=== PATIENT | male | born 1985 | race Caucasian/White ===

== ENCOUNTER 2016-03-09 19:23 | Emergency (ER) | payer BC, OTHER ==
[2016-03-09 20:19] VITALS: BP 146/76
[2016-03-09] MEDS ORDERED: Acetaminophen TAB* 325 MG PO ONE (20:21)
--- NOTE | 2016-03-09 21:15 | UC ---
HPI Febrile Illness - HPI Summary HPI Summary: pt c/o fever, chills X 1 day. - History of Current Complaint Chief Complaint: UCGeneralIllness Time Seen by Provider: 03/09/16 20:25 Hx Obtained From: Patient Onset/Duration: Started Hours Ago Timing: Constant Initial Severity: Mild Current Severity: Mild Aggravating Factors: Nothing Alleviating Factors: Other: - has not taken any OTC medication Associated Signs and Symptoms: Chills - Allergy/Home Medications Allergies/Adverse Reactions: Allergies Allergy/AdvReac Type Severity Reaction Status Date / Time seasonal, cats, dogs Allergy Runny Nose Uncoded 03/09/16 20:19 PMH/Surg Hx/FS Hx/Imm Hx Previously Healthy: Yes Endocrine/Hematology History: Denies: Hx Thyroid Disease Cardiovascular History: Denies: Hx Pacemaker/ICD Respiratory History: Denies: Hx Lung Cancer Sensory History: Denies: Hx Hearing Aid Psychiatric History: Denies: Hx Panic Disorder - Surgical History Surgery Procedure, Year, and Place: HERNIA A CHILD; right knee 2014 Infectious Disease History: No Infectious Disease History: Denies: Traveled Outside the [place] in Last 30 Days - Family History Known Family History: Positive: Cardiac Disease - Social History Lives: With Family Alcohol Use: Occasionally Substance Use Type: Reports: None Smoking Status (MU): Never Smoked Tobacco Review of Systems Constitutional: Fever, Chills, Fatigue Skin: Negative Eyes: Negative ENT: Ear Ache Respiratory: Cough - with deep breaths Cardiovascular: Negative Gastrointestinal: Negative Genitourinary: Negative Motor: Negative Neurovascular: Negative Musculoskeletal: Negative Neurological: Headache Psychological: Negative All Other Systems Reviewed And Are Negative: Yes Physical Exam Triage Information Reviewed: Yes Appearance: Ill-Appearing - mild Vital Signs: Initial Vital Signs Temp 102.2 F 03/09/16 20:14 Pulse 106 03/09/16 20:14 Resp 18 03/09/16 20:14 BP 146/76 03/09/16 20:14 Pulse Ox 100 03/09/16 20:14 Vital Signs Reviewed: Yes ENT Exam: Normal Neck exam: Normal Respiratory Exam: Normal Cardiovascular Exam: Normal Musculoskeletal Exam: Normal Neurological Exam: Normal Psychological Exam: Normal Skin Exam: Normal Course/Dx - Febrile Illness Differential Diagnoses: Other: - influenza, Bronchitis - Diagnoses Clinic Provider Diagnoses: bronchitis Discharge - Discharge Plan Condition: Stable Disposition: HOME Prescriptions: Azithromycin TAB* [Zithromax TAB (Z-BRADLEY) 250 mg #6 tabs] 2 tab PO .TODAY, THEN 1 DAILY #1 bradley Patient Education Materials: Acute Bronchitis (ED) Referrals: [facility] PHYSICIAN REFERRAL [Outside] No Primary Care Phys,NOPCP [Primary Care Provider] -
== END 2016-03-09 21:10 | disposition home or self-care (01) ==
LOC: UCCORT 19:23
DX: J40 Bronchitis, not specified as acute or chronic (principal)
CPT/HCPCS: 87502; 99212; A9270-GY; G0463

== ENCOUNTER 2017-02-21 14:52 | Emergency (ER) | payer BC ==
[2017-02-21 15:50] VITALS: BP 179/80
--- NOTE | 2017-02-21 15:55 | UC ---
Throat Pain/Nasal Papo HPI - HPI Summary HPI Summary: Pt c/o nasal congestion, sinus pressure and pain X 7 days. - History of Current Complaint Chief Complaint: UCRespiratory Stated Complaint: PAPO. Time Seen by Provider: 02/21/17 15:44 Hx Obtained From: Patient Onset/Duration: Gradual Onset, Lasting Days, Still Present, Worse Since - onset Severity: Moderate Associated Signs & Symptoms: Positive: Sinus Discomfort - Epiglottits Risk Factors Epiglottis Risk Factors: Negative - Allergies/Home Medications Allergies/Adverse Reactions: Allergies Allergy/AdvReac Type Severity Reaction Status Date / Time seasonal, cats, dogs Allergy Runny Nose Uncoded 02/21/17 15:45 PMH/Surg Hx/FS Hx/Imm Hx Previously Healthy: Yes - Surgical History Surgical History: Yes Surgery Procedure, Year, and Place: HERNIA A CHILD; right knee 2013 - Family History Known Family History: Positive: Cardiac Disease - Social History Occupation: Employed Full-time Alcohol Use: Occasionally Substance Use Type: None Smoking Status (MU): Never Smoked Tobacco Have You Smoked in the Last Year: No - Immunization History Most Recent Influenza Vaccination: none Review of Systems Constitutional: Fatigue Skin: Negative Eyes: Negative ENT: Sinus Congestion, Sinus Pain/Tenderness Respiratory: Cough Cardiovascular: Negative Gastrointestinal: Negative Genitourinary: Negative Motor: Negative Neurovascular: Negative Musculoskeletal: Negative Neurological: Negative Psychological: Negative Is Patient Immunocompromised?: No All Other Systems Reviewed And Are Negative: Yes Physical Exam Triage Information Reviewed: Yes Appearance: Well-Appearing Vital Signs: Initial Vital Signs Temp 98.2 F 02/21/17 15:46 Pulse 110 02/21/17 15:46 Resp 16 02/21/17 15:46 BP 179/80 02/21/17 15:46 Pulse Ox 100 02/21/17 15:46 Vital Signs Reviewed: Yes Eye Exam: Normal ENT Exam: Other ENT: Positive: Nasal congestion, Sinus tenderness Dental Exam: Normal Neck exam: Normal Respiratory Exam: Normal Cardiovascular: Positive: Tachycardia, Murmur:Sys:Grade _?_/ Abdominal Exam: Normal Musculoskeletal Exam: Normal Neurological Exam: Normal Psychological Exam: Normal Psychological: Positive: Other: - Pt statd that he does not like to go to the doctors. That it makes him nervous. Skin Exam: Normal Throat Pain/Nasal Course/Dx - Differential Dx/Diagnosis Differential Diagnosis/HQI/PQRI: Sinusitis, URI Provider Diagnoses: sinusitis Discharge - Discharge Plan Condition: Stable Disposition: HOME Prescriptions: Amoxicillin PO (*) [Amoxicillin 875 MG (*)] 875 mg PO Q12H #20 tab Patient Education Materials: Sinusitis (ED) Referrals: No Primary Care Phys,NOPCP [Primary Care Provider] - If Needed
== END 2017-02-21 16:01 | disposition home or self-care (01) ==
LOC: UCCORT 14:52
DX: J32.9 Chronic sinusitis, unspecified (principal)
CPT/HCPCS: 99212; G0463

== ENCOUNTER 2017-04-05 19:34 | Emergency (ER) | payer BC ==
[2017-04-05 20:08] VITALS: BP 104/56
--- NOTE | 2017-04-05 20:29 | ED ---
Respiratory - HPI Summary HPI Summary: 32 yr old male with the complaint of cough, fever, chills. Cough has had some rust color blood tinge to it the past day. he is concerned he could have pneumonia. Denies chest pain. No other complaints. - History of Current Complaint Chief Complaint: UCRespiratory Stated Complaint: PRODUCTIVE COUGH Time Seen by Provider: 04/05/17 20:14 Pain Intensity: 0 - Allergy/Home Medications Allergies/Adverse Reactions: Allergies Allergy/AdvReac Type Severity Reaction Status Date / Time seasonal, cats, dogs Allergy Runny Nose Uncoded 04/05/17 20:08 Home Medications: Home Medications Dm/Pseudoephed/Acetaminophen [Day-Time Cold-Flu Softgel] 1 each PO DAILY [History Confirmed 04/05/17] Phenylephrine/Dm/Acetaminop/GG [Tylenol Cold-Flu Severe Caplet] 1 each PO DAILY 04/05/17 [History Confirmed 04/05/17] PMH/Surg Hx/FS Hx/Imm Hx Endocrine/Hematology History: Denies: Hx Thyroid Disease Cardiovascular History: Denies: Hx Pacemaker/ICD Respiratory History: Denies: Hx Lung Cancer Psychiatric History: Denies: Hx Panic Disorder - Surgical History Surgery Procedure, Year, and Place: HERNIA A CHILD; right knee 2014 Infectious Disease History: No Infectious Disease History: Denies: Traveled Outside the [place] in Last 30 Days - Family History Known Family History: Positive: Cardiac Disease - Social History Alcohol Use: Occasionally Substance Use Type: Reports: None Smoking Status (MU): Never Smoked Tobacco Have You Smoked in the Last Year: No Review of Systems Positive: Fever, Chills Positive: Cough All Other Systems Reviewed And Are Negative: Yes Physical Exam Triage Information Reviewed: Yes Vital Signs On Initial Exam: Initial Vitals Temp Pulse Resp BP Pulse Ox 97.9 F 80 18 104/56 99 04/05/17 20:04 04/05/17 20:04 04/05/17 20:04 04/05/17 20:04 04/05/17 20:04 Vital Signs Reviewed: Yes Appearance: Positive: Well-Appearing, No Pain Distress Skin: Positive: Warm, Skin Color Reflects Adequate Perfusion Head/Face: Positive: Normal Head/Face Inspection Eyes: Positive: EOMI ENT: Positive: Normal ENT inspection Neck: Positive: Supple, Nontender Respiratory/Lung Sounds: Positive: Clear to Auscultation, Breath Sounds Present Cardiovascular: Positive: RRR. Negative: Murmur Abdomen Description: Positive: Nontender Musculoskeletal: Positive: Strength/ROM Intact Neurological: Positive: Sensory/Motor Intact, Alert, Oriented to Person Place, Time, CN Intact II-III Psychiatric: Positive: Normal AVPU Assessment: Alert - Gloria Coma Scale Best Eye Response: 4 - Spontaneous Best Motor Response: 6 - Obeys Commands Best Verbal Response: 5 - Oriented Coma Scale Total: 15 Diagnostics - Vital Signs Vital Signs Temp Pulse Resp BP Pulse Ox 04/05/17 20:04 97.9 F 80 18 104/56 99 - Laboratory Lab Statement: Any lab studies that have been ordered have been reviewed, and results considered in the medical decision making process. - Radiology chest Xray Interpretation: No Acute Changes Radiology Interpretation Completed By: Radiologist Disposition - Course Course Of Treatment: 32 yr old with productive cough. Not ill appearing. Chest xray:neg dc home - Diagnoses Provider Diagnoses: Upper respiratory infection Discharge - Discharge Plan Condition: Good Disposition: HOME Patient Education Materials: Upper Respiratory Infection (ED) Forms: *Work Release Referrals: No Primary Care Phys,NOPCP [Primary Care Provider] - [facility] [place] PHYS[facility]IAN REFERRAL [Outside] - 2 Days
--- NOTE | 2017-04-05 20:38 | RAD ---
HISTORY: Cough COMPARISONS: None VIEWS: 4: Frontal dual-energy and lateral views of the chest. FINDINGS: CARDIOMEDIASTINAL SILHOUETTE: The cardiomediastinal silhouette is normal. DEBI: The debi are normal. PLEURA: The costophrenic angles are sharp. No pleural abnormalities are noted. LUNG PARENCHYMA: The lungs are clear. ABDOMEN: The upper abdomen is clear. There is no subphrenic gas. BONES AND SOFT TISSUES: Mild degenerative changes are noted. OTHER: None. IMPRESSION: NO ACTIVE CARDIOPULMONARY DISEASE.
== END 2017-04-05 20:48 | disposition home or self-care (01) ==
LOC: UCCORT 19:34
DX: J06.9 Acute upper respiratory infection, unspecified (principal)
CPT/HCPCS: 71046; 99212; G0463

== ENCOUNTER 2017-08-19 07:03 | Emergency (ER) | payer BC, OTHER ==
[2017-08-19 07:19] VITALS: BP 155/81
--- NOTE | 2017-08-19 07:28 | UC ---
Abdominal Pain Male HPI - HPI Summary HPI Summary: 32 year old male with diarrhea. Diarrhea since Monday night. Taking immodium prn w/ some relief when he takes it. Able to keep fluids/food down. Woke up 0430 this AM w/ LEFT leg cramping and diarrhea again. No fever. no blood in stool. no recent traveling. no camping. no new foods. no chills. ? fever 4 days ago. no longer. some nausea. no vomiting. not eating much or drinking much. [ End ] - History of Current Complaint Chief Complaint: UCGeneralIllness Stated Complaint: DEHYDRATED DIARRHEA LEFT LEG COMP Time Seen by Provider: 08/19/17 07:19 Hx Obtained From: Patient Onset/Duration: Gradual Onset Timing: Intermittent Episodes Lasting: Severity Initially: Moderate Severity Currently: Moderate Pain Intensity: 0 Character: Cramping - Allergies/Home Medications Allergies/Adverse Reactions: Allergies Allergy/AdvReac Type Severity Reaction Status Date / Time seasonal, cats, dogs Allergy Runny Nose Uncoded 08/19/17 07:13 PMH/Surg Hx/FS Hx/Imm Hx Previously Healthy: Yes - Surgical History Surgical History: Yes Surgery Procedure, Year, and Place: HERNIA A CHILD; right knee 2013 - Family History Known Family History: Positive: Cardiac Disease - Social History Occupation: Employed Full-time Alcohol Use: Occasionally Substance Use Type: None Smoking Status (MU): Never Smoked Tobacco Have You Smoked in the Last Year: No - Immunization History Most Recent Influenza Vaccination: none Review of Systems Constitutional: Fatigue Gastrointestinal: Diarrhea Musculoskeletal: Myalgia Is Patient Immunocompromised?: No All Other Systems Reviewed And Are Negative: Yes Physical Exam Triage Information Reviewed: Yes Appearance: Well-Appearing, No Pain Distress, Well-Nourished Vital Signs: Initial Vital Signs Temp 96.5 F 08/19/17 07:13 Pulse 75 08/19/17 07:13 Resp 16 08/19/17 07:13 BP 155/81 08/19/17 07:13 Pulse Ox 98 08/19/17 07:13 Vital Signs Reviewed: Yes Eye Exam: Normal ENT Exam: Normal Dental Exam: Normal Neck exam: Normal Neck: Positive: 1 Respiratory Exam: Normal Cardiovascular Exam: Normal Abdominal Exam: Normal Musculoskeletal Exam: Normal Neurological Exam: Normal Psychological Exam: Normal Skin Exam: Normal Abd Pain Male Course/Dx - Course Course Of Treatment: viral gastroenteritis. no infectious causes. due to duration send home with stool kit. declined work note - Differential Dx/Clinical Impression Provider Diagnoses: diarrhea. leg cramping / spasms. elevate BP without dx of HTN Discharge - Sign-Out/Discharge Documenting (check all that apply): Discharge/Admit/Transfer - Discharge Plan Condition: Good Disposition: HOME Prescriptions: Ondansetron [Zofran Odt] 4 mg PO BID PRN #14 tab.rapdis PRN Reason: Nausea Patient Education Materials: Gastroenteritis (ED) Referrals: No Primary Care Phys,NOPCP [Primary Care Provider] - 1 Week Additional Instructions: You were given a stool kit to further evaluate your diarrhea. Please return the kit as directed - Billing Disposition and Condition Condition: GOOD Disposition: Home
== END 2017-08-19 07:50 | disposition home or self-care (01) ==
LOC: UCCORT 07:03
DX: R19.7 Diarrhea, unspecified (principal); R25.2 Cramp and spasm; R03.0 Elevated blood-pressure reading, without diagnosis of hypertension
CPT/HCPCS: 99212; G0463

== ENCOUNTER 2018-03-23 11:09 | Emergency (ER) | payer BC ==
[2018-03-23 12:18] VITALS: BP 144/77
--- NOTE | 2018-03-23 12:54 | UC ---
Respiratory Complaint HPI - HPI Summary HPI Summary: 33-year-old male here with a chief complaint of upper respiratory tract infection symptoms for 2 weeks.He had a runny nose sore throat is causing moved into his chest. Now he feels chest congestion he's having wheezing and shortness of breath. No recent fevers. He has been taking hot steamy showers which does help open things up. He also has been having coughing fits. - History of Current Complaint Chief Complaint: UCGeneralIllness Stated Complaint: COUGH,FEVER Time Seen by Provider: 03/23/18 12:33 Pain Intensity: 0 - Allergies/Home Medications Allergies/Adverse Reactions: Allergies Allergy/AdvReac Type Severity Reaction Status Date / Time seasonal, cats, dogs Allergy Runny Nose Uncoded 08/19/17 07:13 Home Medications: Home Medications Dm/Pseudoephed/Acetaminophen [Day-Time Cold-Flu Softgel] 1 each PO DAILY [History Confirmed 03/23/18] PMH/Surg Hx/FS Hx/Imm Hx Previously Healthy: Yes - Surgical History Surgical History: Yes Surgery Procedure, Year, and Place: HERNIA A CHILD; right knee X2 2013 - Family History Known Family History: Positive: Cardiac Disease - Social History Alcohol Use: Occasionally Substance Use Type: None Smoking Status (MU): Never Smoked Tobacco Have You Smoked in the Last Year: No - Immunization History Most Recent Influenza Vaccination: none Review of Systems All Other Systems Reviewed And Are Negative: Yes Constitutional: Positive: Negative Skin: Positive: Negative Eyes: Positive: Negative ENT: Positive: Nasal Discharge, Sinus Congestion Respiratory: Positive: Shortness Of Breath, Cough, Other - WHEEZING Cardiovascular: Positive: Negative Gastrointestinal: Positive: Negative Motor: Positive: Negative Neurovascular: Positive: Negative Musculoskeletal: Positive: Negative Neurological: Positive: Negative Psychological: Positive: Negative Is Patient Immunocompromised?: No Physical Exam Triage Information Reviewed: Yes Appearance: No Pain Distress, Well-Nourished, Ill-Appearing - MILD Vital Signs: Initial Vital Signs Temp 97.3 F 03/23/18 12:15 Pulse 78 03/23/18 12:15 Resp 17 03/23/18 12:15 BP 144/77 03/23/18 12:15 Pulse Ox 99 03/23/18 12:15 Vital Signs Reviewed: Yes Eye Exam: Normal Eyes: Positive: Conjunctiva Clear ENT: Positive: Pharyngeal erythema, Nasal congestion, Nasal drainage, TMs normal Neck exam: Normal Neck: Positive: Supple Respiratory: Positive: No respiratory distress, Wheezing Cardiovascular: Positive: RRR Musculoskeletal Exam: Normal Musculoskeletal: Positive: Strength Intact, ROM Intact Neurological Exam: Normal Neurological: Positive: Alert, Muscle Tone Normal Psychological Exam: Normal Psychological: Positive: Age Appropriate Behavior Skin Exam: Normal UC Diagnostic Evaluation - Laboratory O2 Sat by Pulse Oximetry: 99 Respiratory Course/Dx - Differential Dx/Diagnosis Provider Diagnosis: Bronchitis with bronchospasm Discharge - Sign-Out/Discharge Documenting (check all that apply): Patient Departure All imaging exams completed and their final reports reviewed: No Studies - Discharge Plan Condition: Stable Disposition: HOME Prescriptions: Albuterol HFA INHALER* [Ventolin HFA Inhaler*] 2 puff INH Q4H PRN #1 mdi PRN Reason: Wheezing Azithromyxin BRADLEY (NF) [Z-Bradley (Zithromax) 250 mg tabs #6] 2 tab PO .TODAY, THEN 1 DAILY #6 tab Patient Education Materials: Acute Bronchitis (ED), Bronchospasm (ED) Referrals: [facility] [place] [facility] REFERRAL [Outside] Additional Instructions: FOLLOW UP WITH YOUR DOCTOR IF NOT COMPLETELY IMPROVED. GET RECHECKED FOR ANY WORSENING OF YOUR CONDITION OR QUESTIONS OR CONCERNS. - Billing Disposition and Condition Condition: STABLE Disposition: Home
== END 2018-03-23 12:59 | disposition home or self-care (01) ==
LOC: UCCORT 11:09
DX: J40 Bronchitis, not specified as acute or chronic (principal); J98.01 Acute bronchospasm; R09.89 Other specified symptoms and signs involving the circulatory and respiratory systems; J02.9 Acute pharyngitis, unspecified; R09.81 Nasal congestion; Z91.048 Other nonmedicinal substance allergy status
CPT/HCPCS: 99212; G0463